=== PATIENT | female | born 1950 | race Caucasian/White ===

== ENCOUNTER 2016-07-06 15:57 | Emergency (ER) | payer MEDICARE ==
[2016-07-06 19:02] VITALS: BP 161/97
--- NOTE | 2016-07-06 21:04 | ED ---
Lower Extremity - HPI Summary HPI Summary: 65 female presents complaining of right hip pain that began today 07/06/16 after a fall while going up stairs carrying wood. She states she fell on the last step and kind of twisted that she states "ripped" her right hip and leg muscle. He concern is if she fractured anything. Did not hit her leg on anything. The incident occurred around 12:00pm today she attempted to continue working however as the day went on the pain increased. She thought it may have been her sciatica. She is able to bear weight and has been able to walk on it with minimal discomfort. She states the pain seems to radiate down her lateral right leg. Describes the pain as achey and dull. She took Tylenol around 3pm that did give her some relief. She says since she's been resting the pain has seemed to have gotten better. She admits to having sciatica and a cold lower extremity on that right side that is her norm. Denies numbness and tingling. No neuromuscular deficits. No pertinent past medical history. No other complaints of right knee ankle or foot. No back neck or upper extremity pain. Did not hit her head, no LOC. - History of Current Complaint Chief Complaint: EDExtremityLower Stated Complaint: FALL/HIP INJJURY Time Seen by Provider: 07/06/16 20:39 Hx Obtained From: Patient Mechanism Of Injury: Fall From A Standing Position, Twisted Onset of Pain: Hours Severity Currently: Mild Pain Intensity: 7 Pain Scale Used: 0-10 Numeric Timing: Intermittent Location: Is Discrete @ - right hip with radiation to right lateral thigh Character Of Pain: Dull, Aching Associated Signs And Symptoms: Positive: Negative Aggravating Factor(s): Movement - abduction and adduction Alleviating Factor(s): Rest, OTC Meds Able to Bear Weight: Yes PMH/Surg Hx/FS Hx/Imm Hx Previously Healthy: Yes Endocrine/Hematology History: Reports: Hx Thyroid Disease Infectious Disease History: No Infectious Disease History: Denies: Traveled Outside the [place] in Last 30 Days Review of Systems Constitutional: Negative Eyes: Negative ENT: Negative Cardiovascular: Negative Respiratory: Negative Gastrointestinal: Negative Positive: Arthralgia, Myalgia, Decreased ROM - right hip, lower extremity Skin: Negative Neurological: Negative Psychological: Normal All Other Systems Reviewed And Are Negative: Yes Physical Exam Triage Information Reviewed: Yes Vital Signs On Initial Exam: Initial Vitals Temp Pulse Resp BP Pulse Ox 98.1 F 77 12 157/69 100 07/06/16 17:01 07/06/16 17:01 07/06/16 17:01 07/06/16 17:01 07/06/16 17:01 BP elevated patient is in pain, will monitor Vital Signs Reviewed: Yes Appearance: Positive: Well-Appearing, No Pain Distress, Well-Nourished Skin: Positive: Warm, Skin Color Reflects Adequate Perfusion - <2 second cap refill bilateral both upper and lower extremities, Dry Head/Face: Positive: Normal Head/Face Inspection Eyes: Positive: Normal ENT: Positive: Hearing grossly normal Neck: Positive: Supple, Nontender, No Lymphadenopathy Respiratory/Lung Sounds: Positive: Clear to Auscultation, Breath Sounds Present Cardiovascular: Positive: Normal, RRR, Pulses are Symmetrical in both Upper and Lower Extremities - 2+ pedal pulses bilateral Abdomen Description: Positive: Nontender Bowel Sounds: Positive: Present Musculoskeletal: Positive: Strength/ROM Intact, Pain @ - right hip with abduction and adduction. No tenderness on palpation of bony prominence b/l lower extremities. normal gait, slight favoring of left extremity. able to flex and extend with minimal pain. no eccymosis, abrasions, contusions or defomity noted. no crepitus or step off. skin intact. sensation intact.. Negative: Joao Sign Left, Joao Sign Right, Edema Left, Edema Right Neurological: Positive: Normal, Sensory/Motor Intact, Alert, Oriented to Person Place, Time, CN Intact II-III, Reflexes Intact, Normal Gait Psychiatric: Positive: Normal Diagnostics - Vital Signs Vital Signs Temp Pulse Resp BP Pulse Ox 07/06/16 19:00 98.0 F 68 20 161/97 99 07/06/16 17:41 98.3 F 75 16 149/73 07/06/16 17:01 98.1 F 77 12 157/69 100 - Laboratory Lab Statement: Any lab studies that have been ordered have been reviewed, and results considered in the medical decision making process. - Radiology right hip x-ray Xray Interpretation: No Acute Changes - 1. MILD OSTEOARTHRITIS. 2. NO RADIOGRAPHIC EVIDENCE FOR HIP FRACTURE. X-RAYS MAY BE NEGATIVE WITH NONDISPLACED HIP FRACTURE, IF THERE IS PERSISTENT CLINICAL CONCERN, RECOMMEND CONSIDERATION OF MRI. IN THE SETTING OF CONTRAINDICATION TO MRI OR LIMITATION IN EMERGENT ACCESS TO MRI, CT WOULD BE SUGGESTED. Radiology Interpretation Completed By: Radiologist Lower Extremity Course/Dx - Course Course Of Treatment: patient denied any pain management at this time as she is feeling better. right hip x-ray was ordered and negative. patient agrees to take OTC medication to help with pain and inflammation and to rest the area. Did not want prescription due patient preference. Also advised to heat/ice as needed. If symptoms persist/worsen advised to follow up with PCP or ortho for further imaging such as MRI. - Diagnoses Differential Diagnosis/HQI/PQRI: Positive: Arthritis, Contusion, Dislocation, Fracture (Closed), Sciatica, Sprain, Strain Provider Diagnoses: Muscle strain of right lower extremity, Hyperextension injury Discharge - Discharge Plan Condition: Stable Disposition: HOME Patient Education Materials: Muscle Strain (ED) Referrals: Non Staff,Doctor [Primary Care Provider] - [facility] [place] [facility] [Outside] Maddie Munguia MD [Medical Doctor] - Additional Instructions: Take OTC medication such as Tylenol for pain and inflammation. Rest your leg to allow for proper healing. Ice and heat area as needed. If symptoms persist or worsen please make an appointment with your primary care provider or orthopedics.
--- NOTE | 2016-07-06 21:48 | RAD ---
HISTORY: Injury, fall, right hip pain COMPARISONS: None VIEWS: 3, Frontal view of the pelvis with frontal and frog-leg views of the right hip FINDINGS: BONE DENSITY: Normal. BONES: There is no displaced fracture. JOINTS: There is mild osteoarthritis of the hips bilaterally. There is minimal callus indication on the superior labrum on the right. ALIGNMENT: There is no dislocation. SOFT TISSUES: Unremarkable. OTHER FINDINGS: None. IMPRESSION: 1. MILD OSTEOARTHRITIS. 2. NO RADIOGRAPHIC EVIDENCE FOR HIP FRACTURE. X-RAYS MAY BE NEGATIVE WITH NONDISPLACED HIP FRACTURE, IF THERE IS PERSISTENT CLINICAL CONCERN, RECOMMEND CONSIDERATION OF MRI. IN THE SETTING OF CONTRAINDICATION TO MRI OR LIMITATION IN EMERGENT ACCESS TO MRI, CT WOULD BE SUGGESTED.
== END 2016-07-06 22:13 | disposition home or self-care (01) ==
LOC: ED 15:57
DX: S86.911A Strain of unspecified muscle(s) and tendon(s) at lower leg level, right leg, initial encounter (principal); M19.90 Unspecified osteoarthritis, unspecified site; M25.551 Pain in right hip; W19.XXXA Unspecified fall, initial encounter; Y93.9 Activity, unspecified; Y92.9 Unspecified place or not applicable; T14.90 Injury, unspecified; X50.9XXA Other and unspecified overexertion or strenuous movements or postures, initial encounter; Y99.9 Unspecified external cause status
CPT/HCPCS: 99282